=== PATIENT | male | born 2000 ===

== ENCOUNTER 2022-01-14 11:27 | Outpatient (CLI) | payer SELFPAY ==
[2022-01-14 13:05] LABS: Bacteria,Urine 1+ /HPF (Negative); WBC,Urine < 1.0 /HPF (0.0-6.0)
[2022-01-14 13:17] LABS: Bilirubin,Urine 1+ (Negative); Blood,Urine Negative (Negative); Color,Urine Yellow (Yellow)
[2022-01-14 13:18] LABS: Protein,Urine <15 mg/dL mg/dL (Negative)
[2022-01-14 13:19] LABS: Ictotest,Urine Negative (Negative); RBC,Urine < 1.0 /HPF (0.0-6.0)
[2022-02-04 07:53] LABS: HIV-1 Antibody Differentiation SEE SCANNED RESULT; HIV-2 Antibody Differentiation SEE SCANNED RESULT
== END 2022-01-14 11:28 | disposition home or self-care (01) ==
LOC: LABHHL 11:27
PROVIDERS: ATTEND Internal Medicine
DX: A64 Unspecified sexually transmitted disease (principal)
CPT/HCPCS: 36415; 81001; 86689; 87591